=== PATIENT | female | born 1980 | race Caucasian/White ===

== ENCOUNTER 2018-10-11 00:37 | Inpatient (IN) | payer MEDICAID ==
[~2018-10-11] VITALS: Ht 160 cm; Wt 68.0 kg
[2018-10-11 01:00] VITALS: BP_SYST 103
--- NOTE | 2018-10-11 01:00 | NUR ---
Patient to ER bed 5 for evaluation.
--- NOTE | 2018-10-11 01:15 | NUR ---
Patient to ER via triage with c/o abdominal pain x 1 day, patient also reports nausea/vomiting prior to arrival. Patient also reports urinary frequency, but denies burning. Patient able to ambulate without difficulty with slow, steady gait to bed 5 to await MD evaluation. Patient provided urine sample.
[2018-10-11 01:46] LABS: BILIRUBIN,URINE NEGATIVE (NEGATIVE); BLOOD, URINE 3+ (NEGATIVE); CLARITY/URINE SL HAZY (CLEAR); COLOR,URINE YELLOW (YELLOW); GLUCOSE,URINE NEGATIVE (NEGATIVE); KETONES,URINE TRACE (NEGATIVE); LEUKOCYTE ESTERASE ,URINE NEGATIVE (NEGATIVE); NITRITE, URINE NEGATIVE (NEGATIVE); PH,URINE 5.5 (5.0-8.0); PROTEIN URINE 1+ (NEGATIVE); UROBILINOGEN,URINE 0.2 (0.2-1.0)
--- NOTE | 2018-10-11 01:48 | NUR ---
ER at bedside examining patient.
[2018-10-11 01:50] LABS: BACTERIA,URINE FEW /HPF (None Seen); RBC,URINE 20-50 /HPF (0-3); WBC,URINE 0-3 /HPF (0-3)
[2018-10-11 01:51] LABS: MUCUS,URINE 2+ /LPF (None Seen)
[2018-10-11] MEDS ORDERED: NACL 0.9% 1,000 ML IV ONE ×3 (02:19→05:15)
[2018-10-11] MEDS ORDERED: MORPHINE 4 MG/ML INJ. SYRINGE IVP ONE (02:30)
[2018-10-11] MEDS ORDERED: ONDANSETRON HCL 4 MG/2 ML VIAL IVP ONE (02:30)
--- NOTE | 2018-10-11 02:30 | NUR ---
Patient resting quietly in no acute distress, vital signs stable, respirations even and unlabored, skin warm and dry to touch. IV fluids infusing without difficulty, no redness or swelling noted at site. Lights dimmed per patient request, warm blankets provided for patient comfort.
[2018-10-11 02:52] LABS: CREATININE 0.71 mg/dL (0.55-1.30); POTASSIUM 3.5 mmol/L (3.5-5.1)
[2018-10-11 02:54] LABS: BASOPHILS % (AUTO) 0.3 % (0.0-2.0); LYMPHOCYTES # (AUTO) 0.8 K/uL (1.0-5.5); LYMPHOCYTES % (AUTO) 6.2 % (20.5-51.5); MEAN CORPUSCULAR HEMOGLOBIN 30 pg (27-31); MEAN CORPUSCULAR HGB CONC 33 % (32-36); MEAN CORPUSCULAR VOLUME 92 fL (79.0-98.0); MONOCYTES # (AUTO) 1.1 K/uL (0.0-1.0); MONOCYTES % (AUTO) 8.3 % (1.7-9.3); NEUTROPHILS % (AUTO) 85.2 % (40.0-70.0); PLATELET COUNT (AUTO) 266 K/uL (130-430); RED BLOOD CELL COUNT(AUTO) 4.33 MIL/uL (4.2-6.2); RED CELL DISTRIBUTION WIDTH 13.6 % (9.0-15.0); WHITE BLOOD COUNT (AUTO) 12.9 K/uL (4.8-10.8)
[2018-10-11 02:57] LABS: ALBUMIN 3.6 g/dL (3.4-4.8); TOTAL BILIRUBIN 0.6 mg/dL (0.0-1.0)
[2018-10-11 02:59] LABS: INR 1.1 (0.8-1.2)
[2018-10-11] MEDS ORDERED: PIPERACILLIN/TAZO 3.375 GM in NS 50 ML IV ONE (05:15)
[2018-10-11] MEDS ORDERED: PIPERACILLIN/TAZOBACTAM 3.375 GM/VIAL (ZOSYN) IV ONE (05:17)
--- NOTE | 2018-10-11 05:30 | NUR ---
Ankita miguel in ED - 10/11/18 at 0544 by [email or web address] blood cultres drawn, IV antiobiotics administered, and IV fluid bolus 1L started. Patient resting in bed.
--- NOTE | 2018-10-11 05:30 | NUR ---
Blood cultures taken. Administered IV antibiotics and IV Fluids administered. Patient resting comfortably.
--- NOTE | 2018-10-11 07:00 | NUR ---
Introduced self and RN Sal to patient. patient resting calmly inbed denies pain and/or distress at this time.
--- NOTE | 2018-10-11 08:01 | NUR ---
ADMISSION: The patient, DIONNA ONEILL, 37 y/o, F admitted by BRITTNEY GLASER DO, was given written information regarding hospital policies, unit procedures and contact persons.
[2018-10-11 08:08] VITALS: BP_SYST 103
--- NOTE | 2018-10-11 08:11 | NUR ---
CONSULTATION PAGED/CALLED Reason for Consultation: [] R/O APPY Person Who was Notified: [] JOSSELIN Consulting Physician: [] DR Bernardo MENDIOLA [employer] Specialty: [] GENERAL SURGERY Ordering Physician: [] DR Deysi GLASER
--- NOTE | 2018-10-11 08:29 | NUR ---
Spoke with Dr. Tierney updated him with patient status, informed him results from CT not populated, MD stated to get results and call him, CT stated MD just arrived and results should be up shortly,will continue to monitor
--- NOTE | 2018-10-11 08:33 | NUR ---
Patient will be admitted to care of Abdominal pain. Admitted to med/surg unit. Will go to room 107A. Belongings list completed. Summary report printed. Report was give to Admitting RN.
--- NOTE | 2018-10-11 08:45 | NUR ---
Initial Note patient resting in bed, awake and alert, stated pain is tolerable at this time, assessment performed, educated patient on use of call light for assistance, verbalized understanding, call light and bedside table left within reach, will continue to monitor
--- NOTE | 2018-10-11 09:45 | NUR ---
Dr. Morgan Rounds at this time, will follow through with MD navas
[2018-10-11] MEDS ORDERED: ONDANSETRON HCL 4 MG/2 ML VIAL IVP PRN (10:00)
[2018-10-11] MEDS ORDERED: HYDROcodone/ACETAMIN 5-325 MG TAB (NORCO/ VICODIN) PO PRN (10:00)
[2018-10-11] MEDS ORDERED: DOCUSATE SODIUM 100 MG CAPSULE PO PRN (10:00)
[2018-10-11] MEDS ORDERED: LORazepam 2 MG/ML VIAL IVP PRN (10:00)
[2018-10-11] MEDS: cefTRIAXone 1 GM in D5W 50 ML IV SCH (10:39)
[2018-10-11] MEDS: NACL 0.9% 1,000 ML IV SCH ×2 (10:39→23:24)
[2018-10-11] MEDS: KETOROLAC TROMETHAMINE 15 MG VIAL IVP PRN ×2 (10:39→17:46)
[2018-10-11 10:50] LABS: PHOSPHORUS 2.2 mg/dL (2.7-4.5); THYROID STIMULATING HORMONE 3.06 uIu/mL (0.34-4.82)
[2018-10-11 11:04] LABS: BARBITURATE, URINE NEGATIVE (NEG <=200); BENZODIAZEPINE, URINE NEGATIVE (NEG <=150); CANNABINOID, URINE NEGATIVE (NEG <=50); COCAINE, URINE NEGATIVE (NEG <=150); METHAMPHETAMINES SCREEN,URINE NEGATIVE (NEG <=500); OPIATE, URINE NEGATIVE (NEG <=100); PHENCYCLIDINE SCREEN,URINE NEGATIVE (NEG <=25); UR TRICYCLIC ANTIDEPRESSANTS NEGATIVE (NEG <=300); URINE AMPHETAMINE NEGATIVE (NEG <=500); URINE METHADONE NEGATIVE (NEG <=200); URINE OXYCODONE SCREEN NEGATIVE (NEG <=100); URINE PROPOXYPHENE SCREEN NEGATIVE (NEG <=300)
--- NOTE | 2018-10-11 11:10 | NUR ---
Pain Meds administered at this time per protocol, educated patient regarding meds, verbalized understanding, verbalized understanding, IV site patent, tolerated well by mouth, educated patient on use of call light for assistance, verbalized understanding, call light and bedside table left within reach, will continue to monitor
[2018-10-11 12:13] VITALS: BP_SYST 123
--- NOTE | 2018-10-11 13:37 | NUR ---
Called Dr. Tierney (second time) left a voicemail stating I have results for ultrasound ABD that he requested STAT, will await call back
[2018-10-11] MEDS: metroNIDAZOLE 500 mg/NS 100 ML IV SCH ×2 (14:16→23:03)
--- NOTE | 2018-10-11 15:30 | NUR ---
Patient Resting in Bed at this time, breathing unlabored on room air, no complaints of pain at this time, safety precautions remain in place, call light and bedside table left within reach, will continue to monitor
[2018-10-11 16:05] VITALS: BP_SYST 97
--- NOTE | 2018-10-11 17:46 | NUR ---
Toradol administered at this time per pain scale protocol, educated her regarding med, verbalized understanding, tolerated well, no other needs, educated patient on use of call light for assistance, verbalized understanding, call light and bedside table left within reach, will continue to monitor
--- NOTE | 2018-10-11 18:43 | NUR ---
Dr. Tierney Rounds at this time, stated he will order CT of abdomen with contrast and to keep patient NPO, ice chips OK, patient denies pain at this time
--- NOTE | 2018-10-11 18:44 | NUR ---
Closing Note patient resting in bed, awake and alert, family at bedside, provided patient with ice chips, no complaints of pain at this time, breathing unlabored on room air, no other needs at this time, educated patient on use of call light for assistance, verbalized understanding, call light and bedside table left within reach, will endorse to plant chief nurse
--- NOTE | 2018-10-11 19:35 | NUR ---
OPENING NOTE Received patient awake, AOx4. VSS and she denied pain at this time. She was talking with visitors at bedside. IV to LAC is patent and fluids infusing as ordered. Updated board and reviewed plan of care. Bed locked to lowest position and call light w/in reach.
[2018-10-11 20:05] VITALS: BP_SYST 100
[2018-10-11] MEDS ORDERED: ZOLPIDEM TARTRATE 5 MG TABLET PO PRN (21:00)
[2018-10-11] MEDS: ACETAMINOPHEN 325 MG TABLET PO PRN (23:14)
--- NOTE | 2018-10-11 23:15 | NUR ---
ROUNDS Patient awake at this time. Administered IV antibiotic as ordered and educated patient on possible side effects. She reported a headache with pain level of 5-6 out of 10 and was administered tylenol prn as ordered. No further needs. Safety precautions in place and call light w/in reach. Will continue to monitor.
[2018-10-11 23:34] VITALS: BP_SYST 115
--- NOTE | 2018-10-12 00:20 | NUR ---
ROUNDS Patient sleeping, symmetrical rise and fall of chest. Lights are low, safety precautions in place and call light w/in reach. Will monitor.
--- NOTE | 2018-10-12 02:08 | NUR ---
ROUNDS Patient awakened by IV alarm. Presently denies pain and no further needs at this time. Bed to lowest position and call light w/in reach. Will monitor.
--- NOTE | 2018-10-12 05:30 | NUR ---
ROUNDS Lab is at bedside for blood draw. Patient denies pain at this time. She ambulated to the restroom with steady gait. Administered antibiotic as ordered. Patient was provided with consent for CT abdomen/pelvis w/ contrast. Her questions were answered and she signed the consent. Safety precations in place and call light w/in reach.
[2018-10-12] MEDS: NACL 0.9% 1,000 ML IV SCH ×2 (05:52→15:52)
[2018-10-12] MEDS: metroNIDAZOLE 500 mg/NS 100 ML IV SCH ×3 (05:56→22:52)
[2018-10-12 06:47] LABS: BASOPHILS # (AUTO) 0.1 K/uL (0.0-0.2); BASOPHILS % (AUTO) 0.9 % (0.0-2.0); EOSINOPHILS # (AUTO) 0.1 K/uL (0.0-0.4); EOSINOPHILS % (AUTO) 0.7 % (0.0-4.0); HEMATOCRIT 32.8 % (36-48); HEMOGLOBIN 10.4 g/dL (12.0-16.0); LYMPHOCYTES # (AUTO) 1.6 K/uL (1.0-5.5); LYMPHOCYTES % (AUTO) 18.3 % (20.5-51.5); MEAN CORPUSCULAR HEMOGLOBIN 29 pg (27-31); MEAN CORPUSCULAR HGB CONC 32 % (32-36); MEAN CORPUSCULAR VOLUME 92 fL (79.0-98.0); MONOCYTES # (AUTO) 0.9 K/uL (0.0-1.0); MONOCYTES % (AUTO) 9.9 % (1.7-9.3); NEUTROPHILS # (AUTO) 6.1 K/uL (1.8-7.7); NEUTROPHILS % (AUTO) 70.2 % (40.0-70.0); PLATELET COUNT (AUTO) 193 K/uL (130-430); RED BLOOD CELL COUNT(AUTO) 3.57 MIL/uL (4.2-6.2); RED CELL DISTRIBUTION WIDTH 13.9 % (9.0-15.0); WHITE BLOOD COUNT (AUTO) 8.8 K/uL (4.8-10.8)
--- NOTE | 2018-10-12 06:50 | NUR ---
CLOSING NOTE Patient is resting w/eyes closed. IV fluids infusing as ordered. Needs met throughout shift. Will endorse care to oncoming nurse. Bed locked to lowest position and call light w/in reach.
[2018-10-12 07:03] LABS: CALCIUM 8.2 mg/dL (8.4-11.0); CREATININE 0.6 mg/dL (0.55-1.30); PHOSPHORUS 2.6 mg/dL (2.7-4.5); POTASSIUM 3.2 mmol/L (3.5-5.1)
--- NOTE | 2018-10-12 07:12 | NUR ---
Opening Note patient resting in bed, eyes closed, positioned to her side, breathing unlabored on room air, IV fluids infusing at this time, no signs of distress, symmetrical chest expansion, safety precautions in place, bedside table and call light within reach, will continue to monitor
[2018-10-12] MEDS: cefTRIAXone 1 GM in D5W 50 ML IV SCH (07:46)
--- NOTE | 2018-10-12 07:46 | NUR ---
Nutrition Update Juan Scale 18 noted. Pt admitted for R/O appendicitis Diet: NPO BMI: 26.6 kg/m2 RD to follow per nutrition care standards.
[2018-10-12 08:03] VITALS: BP_SYST 95
--- NOTE | 2018-10-12 08:05 | NUR ---
Antibiotics hung at this time, educated patient regarding meds, verbalized understanding, IV site remains patent, denies pain at this time, breathing unlabored on room air, educated patient on use of call light for assistance verbalized understanding, call light and bedside table left within reach, will continue to monitor patient
--- NOTE | 2018-10-12 09:23 | NUR ---
CONSULTATION PAGED REASON FOR CONSULTATION:POSSIBLE OVARIAN CYST WAS CONSULT CALLED?:Y PERSON WHO WASA NOTIFIED:ELANA CONSULTING PHYSICIAN:MILO MARCUS (OUT OF TOWN UNTIL October) YOU[employer] TE[employer]ER SPECIALTY:OBSTERICS AND GYNECOLOGY YOUTH TEACHER PHONE NUMBER:[phone] REQUESTING PHYSICIAN:BRITTNEY MUNROE
[2018-10-12] MEDS ORDERED: DIATR MEGLU/DIATRIZ SOD 30 ML SOLUTION PO ONE (09:26)
--- NOTE | 2018-10-12 10:10 | NUR ---
Spoke With Dr. Rizzo At [facility] regarding consult, stated he will be by later, Dr. Morgan also spoke with Dr. Rizzo at station as well.
--- NOTE | 2018-10-12 10:28 | NUR ---
Patient Ambulated to Restroom steady gait, no complaints of pain at this time, educated patient on safety precautions, verbalized understanding, safety precautions remain in place, will continue to monitor
[2018-10-12] MEDS ORDERED: IOHEXOL 100 ML IV ONE (10:46)
--- NOTE | 2018-10-12 11:58 | NUR ---
PAGED PAGED BRITTNEY MUNROE AT [phone] WAS DIRECTLY CONNECTED TO .
[2018-10-12 12:02] VITALS: BP_SYST 95
--- NOTE | 2018-10-12 12:14 | NUR ---
Patient Taken to OR at this time, will assess when she returns
[2018-10-12] MEDS ORDERED: fentaNYL CITRATE/PF 100 MCG/2 ML AMP IVP PRN ×2 (12:45)
[2018-10-12] MEDS ORDERED: KETOROLAC TROMETHAMINE 30 MG VIAL IVP PRN (12:45)
[2018-10-12] MEDS ORDERED: ONDANSETRON HCL 4 MG/2 ML VIAL IVP PRN ×2 (12:45→14:15)
[2018-10-12] MEDS ORDERED: ACETAMINOPHEN/CODEINE 300 MG-30 MG TABLET PO PRN (14:15)
[2018-10-12] MEDS ORDERED: MORPHINE 4 MG/ML INJ. SYRINGE IVP PRN (14:15)
[2018-10-12] MEDS ORDERED: D5LR 1,000 ML IV ONE (14:15)
--- NOTE | 2018-10-12 15:10 | NUR ---
Patient Back on Unit at this time, she was reoriented to room, at bedside at this time, educated patient on use of call light for assistance verbalized understanding, call light and bedside table left within reach, will continue to monitor patient
--- NOTE | 2018-10-12 16:17 | NUR ---
Zofran administered at this time for nausea, verbalized understanding, IV site remains patent, IV fluids infusing, safety precautions remain in place, bedside table and call light within reach, will continue to monitor
--- NOTE | 2018-10-12 17:55 | NUR ---
Patient Ambulated to Restroom steady gait, no signs of distress, no complaints of pain, dressings clean dry and in tact, safety precautions remain in place, will continue to monitor
--- NOTE | 2018-10-12 18:15 | NUR ---
Incentive spirometer educated patient on use, verbalized understanding, reached 1500 mL, tolerated well, educated her on frequency of use, verbalized understanding, left within reach
--- NOTE | 2018-10-12 18:20 | NUR ---
Informed MD about Low Potassium received orders, also updated him on patient's procedure, MD verbalized understanding
--- NOTE | 2018-10-12 18:51 | NUR ---
Closing Note patient resting in bed, HOB elevated, no complaints of pain at this time, breathing unlabored on room air, IV fluids infusing, safety precautions remain in place, bedside table and call light left within reach, will endorse to physician assistant nurse
[2018-10-12 19:00] VITALS: BP_SYST 101
[2018-10-12] MEDS ORDERED: KCL 20 mEq in 100 mL (PREMIX) 100 ML IV SCH (19:00)
--- NOTE | 2018-10-12 19:00 | NUR ---
change of shift.pt.presents s/p surgery:10/12/18;appendectomy.pt.sates pain level tolerable@this hour. diet status:clear liquids.general status stable.respiratory status stable.iv fluids infusing.i have been apprised per the day shift nsg;joana pt to receive a k+rider;20meq's.to f/u. Addendum: 10/13/18 at 0431 by Gm Arzola RN i have assessed th abdomen region:re;appendectomy incision sites:x4.dsg dry/intact no presentation drainage. p.had requested cup of tea. i have proved the snack.i have apprised the pt.that diet status is ordered advance as tolerated;i am to advance to regular;10/13/18;breakfast.
[2018-10-12 20:00] VITALS: BP_SYST 101
--- NOTE | 2018-10-12 20:00 | NUR ---
pt.assessed.v/s assessed;values w/in normal limits.pt.had requested medication pain.i have administered morphine;2mg ivp. to f/u re;pain medication efficacy per pain mgx protocol.pt.assisted to the restroom.pt.assisted return to bed.pt.capable to reposition self.
[2018-10-12] MEDS: MORPHINE 4 MG/ML INJ. SYRINGE IVP PRN (20:09)
--- NOTE | 2018-10-12 22:00 | NUR ---
pt.assessed.pt.presents quiescent affect;calm.pt.viewing tv programing.pt.resents requests;sandwich.i have provided the snack. flagyl;abx;ivpb administered;2200p dose.pt.inquired of the incentive spirometer application.i have reviewed the indication;necessity of the incentive spirometer.pt.capable to reposition self.general status stable.respiratory status sable.call light/telephone w/in the pt's reach.
--- NOTE | 2018-10-12 23:00 | NUR ---
cat quiroz;rn has re-established iv access;rt.forearm.i have administered the k+rider;20meq's.pt.assisted to the restroom.pt.assisted return to bed.iv fluids infusing.no c/o pain/nausea.call light/telephone placed w/in the pt's reach.
--- NOTE | 2018-10-13 | NUR ---
pt.assessed.v/s assessed;values w/in normal limits.pt.presents no requests@this hour.no c/o pain,nausea. general status stable.respiratory status stable.call light/telephone w/in the pt's reach.
[2018-10-13 00:33] VITALS: BP_SYST 95
[2018-10-13] MEDS: NACL 0.9% 1,000 ML IV SCH ×2 (01:52→06:36)
--- NOTE | 2018-10-13 02:00 | NUR ---
pt.assessed.pt presents quiescent affect;calm,somnolent.general status stable.respiratory status stable.iv fluids infusing. call light/telephone w/in the pt's reach.
--- NOTE | 2018-10-13 04:00 | NUR ---
pt.assessed.pt.presents quiescent affect;calm.pt.was assisted to the restroom .pt,.was assisted return to bed.repositioned. general status stable.respiratory status stable.pt.capable to reposition self.call light/telephone placed w/in the pt's reach.
--- NOTE | 2018-10-13 06:30 | NUR ---
pt.assessed.pt.requested medication;pain i have administered morphine;2mg ivp.pt.was assisted to the restroom. i have changed the iv fluids, bag,.i have administered the flagyl;abx;ivpb:0600a dose.pt.had requested cup of tea. i have provided the tea.abdomen dsg;incision sites x4 assessed;dsg dry/intact,no drainage present.general status stable.respiratory status stable.incentive spirometer @bedside.call light/telephone w/in the pt's reach.
[2018-10-13] MEDS: MORPHINE 4 MG/ML INJ. SYRINGE IVP PRN (06:33)
[2018-10-13] MEDS: metroNIDAZOLE 500 mg/NS 100 ML IV SCH ×2 (06:38→14:03)
[2018-10-13 06:52] LABS: BASOPHILS % (AUTO) 0.2 % (0.0-2.0); EOSINOPHILS % (AUTO) 0.6 % (0.0-4.0); HEMATOCRIT 29.8 % (36-48); HEMOGLOBIN 10.1 g/dL (12.0-16.0); LYMPHOCYTES # (AUTO) 1.3 K/uL (1.0-5.5); LYMPHOCYTES % (AUTO) 23.7 % (20.5-51.5); MEAN CORPUSCULAR HEMOGLOBIN 31 pg (27-31); MEAN CORPUSCULAR HGB CONC 34 % (32-36); MEAN CORPUSCULAR VOLUME 90 fL (79.0-98.0); MONOCYTES # (AUTO) 0.6 K/uL (0.0-1.0); MONOCYTES % (AUTO) 10.4 % (1.7-9.3); NEUTROPHILS # (AUTO) 3.7 K/uL (1.8-7.7); NEUTROPHILS % (AUTO) 65.1 % (40.0-70.0); PLATELET COUNT (AUTO) 202 K/uL (130-430); RED BLOOD CELL COUNT(AUTO) 3.29 MIL/uL (4.2-6.2); RED CELL DISTRIBUTION WIDTH 13.8 % (9.0-15.0); WHITE BLOOD COUNT (AUTO) 5.6 K/uL (4.8-10.8)
[2018-10-13 07:14] LABS: CALCIUM 8.3 mg/dL (8.4-11.0); CREATININE 0.5 mg/dL (0.55-1.30); PHOSPHORUS 2.5 mg/dL (2.7-4.5); POTASSIUM 3.2 mmol/L (3.5-5.1)
--- NOTE | 2018-10-13 07:35 | NUR ---
OPENING NOTE Patient awake, alert and oriented x4, denies any pain at this time. On room air, breathing even and unlabored. Patient ambulatory noted with steady gait. IV site patent and intact, NS running at 100 ml/hr and tolerating well. Safety and fall precautions in place, bed is in lowest position and locked, side rails up x2, call light within reach, will continue to monitor.
[2018-10-13 07:40] VITALS: BP_SYST 99
--- NOTE | 2018-10-13 08:10 | NUR ---
SPOKE WITH MD Dr. Tierney called to check on pt-MD updated on pt. Okay to discharge pt home from surgeon standpoint per Dr. Tierney. Pt to follow-up with Dr. Tierney in 1 week.
[2018-10-13] MEDS: cefTRIAXone 1 GM in D5W 50 ML IV SCH (09:34)
--- NOTE | 2018-10-13 10:15 | NUR ---
ROUNDS Pt sitting up in bed using her incentive spirometer. No s/s resp distress, no c/o pain or discomfort. Pt ate well at breakfast with no c/o GI distress. Needs met, call light within reach.
[2018-10-13 11:17] VITALS: BP_SYST 108
[2018-10-13] MEDS ORDERED: POTASSIUM CHLORIDE 20 MEQ TAB.PRT.SR PO ONE ×2 (11:45→16:30)
--- NOTE | 2018-10-13 14:03 | NUR ---
ROUNDS Patient awake, alert and oriented x4, no c/o pain or discomfort at this time. No respiratory distress noted. IV on RFA remains patent and intact. IV antibiotic administered as ordered and patient is tolerating well. Safety and fall precautions in place, bed is in lowest position and locked, side rails up x2, call light within reach, family at bedside at this time. Will continue to monitor.
[2018-10-13] MEDS ORDERED: HYDR-4272 PO (15:36)
--- NOTE | 2018-10-13 16:06 | NUR ---
Dietitian Recommendations *Recommend GI Soft diet. Please see Nutritional Assessment for details. FPC, RD
[2018-10-13 16:36] VITALS: BP_SYST 106
[2018-10-13 17:07] LABS: CALCIUM 8.5 mg/dL (8.4-11.0); CREATININE 0.57 mg/dL (0.55-1.30); POTASSIUM 3.7 mmol/L (3.5-5.1)
--- NOTE | 2018-10-13 18:21 | NUR ---
CLOSING NOTE Patient is awake, alert and oriented x4, denies any pain or discomfort at this time. No respiratory distress noted, patient on room air, breathing even and unlabored. IV site on RFA remains patent and intact. Safety and fall precautions in place, bed is in lowest position and locked, side rails up x2, call light within reach. All needs met throughout the shift, will endorse plan of care.
--- NOTE | 2018-10-13 19:05 | NUR ---
OPENING NOTE RECEIVED ENDORSEMENT REPORT FROM DAY SHIFT NURSE TOM AT BEDSIDE. PT IS AOX4, PT RESTING COMFORTABLY IN BED WITH EYES OPEN. CHEST RISE EVEN AND UNLABORED. NO SOB NOTED, NO DISTRESS NOTED. PT DENIES PAIN AT THIS TIME. PT HAS IV ON RIGHT FA 20 G, SL. IV SITE CLEAN, DRY AND INTACT. PT IS ON RA AND TOLERATING WELL. PT HAS 4 INCISION SITES, DRESSINGS CLEAN, DRY AND INTACT. VITAL SIGNS WNL. NO NEEDS AT THIS TIME. ORIENTED PT TO HOSPITAL ROOM, PT VERBALIZED UNDERSTANDING. INSTRUCTED PT HOW TO USE ROOM PHONE AND CALL LIGHT, PT VERBALIZED UNDERSTANDING. PT EDUCATED ON SAFETY, INSTRUCTED PT TO CALL FOR ASSISTANCE. PT VERBALIZED UNDERSTANDING. SAFETY MEASURES IN PLACE, CALL LIGHT/ROOM PHONE WITHIN REACH, BED IN LOWEST POSITION, BED RAILS UP X2, BED WHEELS LOCKED, BEDSIDE TABLE WITHIN REACH. NO OTHER NEEDS AT THIS TIME. WILL CONTINUE POC. PT TO D/C HOME IF POTASSIUM ABOVE 3.2. PENDING LAB RESULTS. Patient is awake, alert and oriented x4, denies any pain or discomfort at this time. No respiratory distress noted, patient on room air, breathing even and unlabored. IV site on RFA remains patent and intact. Safety and fall precautions in place, bed is in lowest position and locked, side rails up x2, call light within reach. All needs met throughout the shift, will endorse plan of care.
--- NOTE | 2018-10-13 19:15 | NUR ---
POTASSIUM LAB RESULTS 10/13 POTASSIUM 1620 3.7, 1900 4.1
[2018-10-13 19:30] VITALS: BP_SYST 107
[2018-10-13 19:45] LABS: CALCIUM 8.7 mg/dL (8.4-11.0); CREATININE 0.54 mg/dL (0.55-1.30); POTASSIUM 4.1 mmol/L (3.5-5.1)
[2018-10-13] MEDS: ACETAMINOPHEN 325 MG TABLET PO PRN (19:58)
--- NOTE | 2018-10-13 19:58 | NUR ---
RN ROUNDS PT RESTING COMFORTABLY IN BED WITH EYES OPEN. CHEST RISE EVEN AND UNLABORED. NO SOB NOTED, NO DISTRESS NOTED. PT REPORTS 2/10 RIGHT ABD PAIN, PRN PO TYLENOL 650 MG ADMINISTERED ORDERED, PT TOLERATED WELL. WILL MONITOR MEDICATION EFFECTIVENESS. NO OTHER NEEDS AT THIS TIME. SAFETY MEASURES IN PLACE. WILL CONTINUE POC UNTIL DISCHARGE.
--- NOTE | 2018-10-13 20:58 | NUR ---
RN ROUNDS PT RESTING COMFORTABLY IN BED WITH EYES OPEN. FAMILY AT BEDSIDE. CHEST RISE EVEN AND UNLABORED. NO SOB NOTED, NO DISTRESS NOTED. PT DENIES PAIN AT THIS TIME. MEDICATION EFFECTIVE. NO OTHER NEEDS AT THIS TIME. SAFETY MEASURES IN PLACE. WILL CONTINUE POC.
--- NOTE | 2018-10-13 21:27 | NUR ---
RN ROUNDS PT RESTING COMFORTABLY IN BED WITH EYES OPEN. FAMILY AT BEDSIDE. CHEST RISE EVEN AND UNLABORED. NO SOB NOTED, NO DISTRESS NOTED. PT DENIES PAIN AT THIS TIME. MEDICATION EFFECTIVE. PT CHANGED INTO PERSONAL CLOTHING. PT INSTRUCTED ON D/C INSTRUCTIONS. PT TO FU WITH PCP, DR. MENDIOLA,AND DR. JESUS W/IN 1 WEEK. PT PROVIDED WITH COPIES OF ALL IMAGING STUDIES SO HER PCP CAN SETUP OUTPATIENT WORKUP. D/C PACKET COMPLETE, PT SIGNED D/C PACKET. PT'S IV REMOVED. PT REFUSED WHEELCHAIR. PT AMBULATED WITH STEADY GAIT ACCOMPANIED BY FAMILY OUT OF ED AND INTO PRIVATE VEHICLE WITH FAMILY. Addendum: 10/14/18 at 0102 by Sophie Norton RN DISCHARGE
== END 2018-10-13 21:24 | disposition home or self-care (01) | DRG 710 ==
LOC: SED 00:37 → SMU 07:39
PROVIDERS: ADMIT Family Medicine; ATTEND Family Medicine
PROC: 0DTJ4ZZ Resection of Appendix, Percutaneous Endoscopic Approach (ICD-10-PCS; principal; 2018-10-12 12:00)
PROC: 0WJJ4ZZ Inspection of Pelvic Cavity, Percutaneous Endoscopic Approach (ICD-10-PCS; 2018-10-12 12:00)
DX: A41.9 Sepsis, unspecified organism (principal); K66.1 Hemoperitoneum; K35.32 Acute appendicitis with perforation, localized peritonitis, and gangrene, without abscess; E83.39 Other disorders of phosphorus metabolism; D25.9 Leiomyoma of uterus, unspecified; N83.209 Unspecified ovarian cyst, unspecified side; E87.6 Hypokalemia; D64.9 Anemia, unspecified; R58 Hemorrhage, not elsewhere classified
CPT/HCPCS: 36415; 71045; 76700-TC; 76857; 80048; 80053; 80307; 81000-TC; 82150-TC; 83036; 83690-TC; 83735-TC; 83880; 84100-TC; 84443-TC; 85025; 85610-TC; 87040-TC; 87070-TC; 87075-TC; 87081; 87186-TC; 88304; 96361; 96365; 96375; 99285; J0696; J1885; J2270; J2405; J2543; J3480; J3490; J7030; J7042; J7060; J7120; Q9964; Q9967